=== PATIENT | male | born 1965 | race Caucasian/White ===

== ENCOUNTER 2021-02-01 16:20 | Inpatient (IN) | payer OTHER ==
[2021-02-01] MEDS ORDERED: ACETAMINOPHEN 1000 MG/100 ML VIAL (NON FORMULARY) IVPB ONE (17:18)
[2021-02-01 17:50] LABS: BASO % 0.9 % (0-2.0); EOS % 0.8 % (0-4.5); HEMATOCRIT 35.5 % (35.4-49); HEMOGLOBIN 12.2 GM/dL (11.7-16.9); LYMPH % 3.7 % (8-40); MCH 34.5 pg (25.7-33.7); MCHC 34.2 g/dl (32.0-35.9); MEAN CELL VOLUME 100.6 fl (80-96); MEAN PLT VOLUME 9.2 fl (7.5-11.1); MONO % 7.1 % (3.8-10.2); NEUT % 87.5 % (42.8-82.8); PLATELET COUNT 120 K/MM3 (134-434); RBC 3.53 M/mm3 (4.00-5.60); RDW 15.3 % (11.9-15.9); WHITE BLOOD COUNT 8.7 K/mm3 (4.0-10.0)
[2021-02-01] MEDS ORDERED: SODIUM CHLORIDE 0.9% 500 ML INFUS.BAG IV ONE ×2 (18:01→21:50)
[2021-02-01] MEDS ORDERED: THIAMINE HCL 100 MG TABLET (FP) PO ONE (18:02)
[2021-02-01] MEDS ORDERED: FOLIC ACID 1 MG TABLET (FP) PO ONE (18:02)
[2021-02-01 18:11] LABS: CALCIUM 9.3 mg/dL (8.5-10.1)
[2021-02-01 18:12] LABS: BLOOD UREA NITROGEN 13.8 mg/dL (7-18)
[2021-02-01 18:17] LABS: BILIRUBIN,TOTAL 1.7 mg/dL (0.2-1)
[2021-02-01] MEDS ORDERED: ACETAMINOPHEN INJECTION 100 ML IVPB ONE (18:27)
[2021-02-01] MEDS ORDERED: THIAMINE HCL 100 MG TABLET (FP) ONE (18:27)
[2021-02-01] MEDS ORDERED: FOLIC ACID 1 MG TABLET (FP) ONE (18:27)
[2021-02-01 18:39] LABS: EPI CELLS 17 /uL (0-25.1); HYALINE CASTS 32 /uL (0-3.1); URINE APPEARANCE CLOUDY; URINE BILIRUBIN 2+ (NEGATIVE); URINE COLOR ORANGE; URINE GLUCOSE (UA) NEGATIVE (NEGATIVE); URINE KETONE TRACE (NEGATIVE); URINE LEUK ESTERASE TRACE (NEGATIVE); URINE NITRITE POSITIVE (NEGATIVE); URINE PROTEIN 2+ (NEGATIVE); URINE RBC 10 /uL (0-23.9); URINE WBC 16 /uL (0-25.8)
[2021-02-01 19:30] LABS: URINE BACTERIA 6.6 /uL (0-1359)
[2021-02-01] MEDS ORDERED: LORazepam 2 MG/ML SDV VIAL IVPUSH ONE (19:57)
[2021-02-01] MEDS ORDERED: LORazepam 2 MG/ML SDV VIAL ONE (20:03)
[2021-02-01 20:31] LABS: LACTIC ACID 2.1 mmol/L (0.4-2.0)
[2021-02-01] MEDS ORDERED: CEFTRIAXONE 1 GM in DEXTROSE 5%-WATER - 100 ML IVPB ONE (20:38)
[2021-02-01] MEDS ORDERED: CEFTRIAXONE 1 GM/50 ML BAG ONE (20:47)
[2021-02-02] MEDS ORDERED: SODIUM CHLORIDE 1,000 ML IV SCH (01:30)
[2021-02-02 05:59] LABS: HEMATOCRIT 33.5 % (35.4-49); HEMOGLOBIN 11.6 GM/dL (11.7-16.9); MCH 34.8 pg (25.7-33.7); MCHC 34.5 g/dl (32.0-35.9); MEAN CELL VOLUME 100.8 fl (80-96); MEAN PLT VOLUME 8.7 fl (7.5-11.1); PLATELET COUNT 92 K/MM3 (134-434); RBC 3.33 M/mm3 (4.00-5.60); RDW 15.1 % (11.9-15.9); WHITE BLOOD COUNT 5.6 K/mm3 (4.0-10.0)
[2021-02-02 06:16] LABS: ALBUMIN 3.5 g/dl (3.4-5.0); CALCIUM 8.8 mg/dL (8.5-10.1)
[2021-02-02 06:17] LABS: BLOOD UREA NITROGEN 11.2 mg/dL (7-18)
[2021-02-02 06:19] LABS: MAGNESIUM 1.9 mg/dL (1.8-2.4)
[2021-02-02 06:20] LABS: CREATININE 0.6 mg/dL (0.55-1.3); PHOSPHOROUS 2.8 mg/dL (2.5-4.9)
[2021-02-02 06:21] LABS: BILIRUBIN,TOTAL 1.9 mg/dL (0.2-1); TOT PROT 7.9 g/dl (6.4-8.2)
[2021-02-02] MEDS ORDERED: FOLIC ACID 1 MG TABLET (FP) PO SCH (10:00)
[2021-02-02] MEDS ORDERED: CEFTRIAXONE 1 GM in DEXTROSE 5%-WATER - 50 ML IVPB SCH (10:00)
[2021-02-02] MEDS ORDERED: THIAMINE HCL 100 MG TABLET (FP) PO SCH (10:00)
[2021-02-02] MEDS ORDERED: MULTIVITAMINS (DAILY MVI) TABLET (FP) PO SCH (10:00)
[2021-02-02] MEDS ORDERED: ENOXAPARIN NA (PORCINE) 40 MG/0.4 ML DISP.SYRIN SQ SCH (10:00)
[2021-02-02] MEDS ORDERED: THIAMINE HCL 100 MG TABLET (FP) ONE (10:19)
[2021-02-02] MEDS ORDERED: MULTIVITAMINS (DAILY MVI) TABLET (FP) ONE (10:19)
[2021-02-02] MEDS ORDERED: FOLIC ACID 1 MG TABLET (FP) ONE (10:20)
[2021-02-02] MEDS ORDERED: CEFTRIAXONE 1 GM/50 ML BAG ONE (10:20)
[2021-02-02] MEDS ORDERED: ENOXAPARIN NA (PORCINE) 40 MG/0.4 ML DISP.SYRIN SQ ONE (10:20)
[2021-02-02] MEDS ORDERED: LORazepam 1 MG TABLET ONE (10:31)
[2021-02-02] MEDS: LORazepam 1 MG TABLET PO PRN ×2 (10:36→21:05)
[2021-02-02 13:08] VITALS: BMI 29.5
[2021-02-02] MEDS ORDERED: LORazepam 1 MG TABLET PO PRN (22:51)
[2021-02-03 07:41] LABS: BASO % 1.1 % (0-2.0); EOS % 6.9 % (0-4.5); HEMATOCRIT 33.9 % (35.4-49); HEMOGLOBIN 11.7 GM/dL (11.7-16.9); MCH 35.1 pg (25.7-33.7); MCHC 34.5 g/dl (32.0-35.9); MEAN CELL VOLUME 101.6 fl (80-96); MEAN PLT VOLUME 9.7 fl (7.5-11.1); PLATELET COUNT 91 K/MM3 (134-434); RBC 3.34 M/mm3 (4.00-5.60); RDW 14.6 % (11.9-15.9); WHITE BLOOD COUNT 6.1 K/mm3 (4.0-10.0)
[2021-02-03 08:18] LABS: CALCIUM 8.8 mg/dL (8.5-10.1)
[2021-02-03 08:19] LABS: ALBUMIN 3.5 g/dl (3.4-5.0); BLOOD UREA NITROGEN 10.8 mg/dL (7-18); MAGNESIUM 1.8 mg/dL (1.8-2.4)
[2021-02-03 08:22] LABS: CREATININE 0.6 mg/dL (0.55-1.3)
[2021-02-03 08:25] LABS: BILIRUBIN,TOTAL 2.2 mg/dL (0.2-1)
[2021-02-03] MEDS ORDERED: DEXTROSE 5%-WATER - 50 ML IVPB ONE (08:56)
[2021-02-03] MEDS ORDERED: cefTRIAXone SODIUM 1 GM VIAL ONE (08:56)
[2021-02-03] MEDS: THIAMINE HCL 100 MG TABLET (FP) PO SCH (09:08)
[2021-02-03] MEDS: CEFTRIAXONE 1 GM in DEXTROSE 5%-WATER - 50 ML IVPB SCH (09:08)
[2021-02-03] MEDS: FOLIC ACID 1 MG TABLET (FP) PO SCH (09:08)
[2021-02-03] MEDS: ENOXAPARIN NA (PORCINE) 40 MG/0.4 ML DISP.SYRIN SQ SCH (09:09)
[2021-02-03] MEDS: MULTIVITAMINS (DAILY MVI) TABLET (FP) PO SCH (09:09)
[2021-02-03] MEDS ORDERED: LORazepam 1 MG TABLET PO PRN (10:21)
[2021-02-03] MEDS: LORazepam 1 MG TABLET PO SCH ×3 (11:03→22:01)
[2021-02-04] MEDS ORDERED: LORazepam 0.5 MG TABLET PO PRN ×2
[2021-02-04] MEDS: LORazepam 1 MG TABLET PO SCH ×4 (05:46→22:23)
[2021-02-04 07:34] LABS: EOS % 6.5 % (0-4.5); HEMATOCRIT 34.2 % (35.4-49); MCH 35.3 pg (25.7-33.7); MEAN CELL VOLUME 100.8 fl (80-96); MEAN PLT VOLUME 9.8 fl (7.5-11.1); MONO % 9.2 % (3.8-10.2); NEUT % 73.3 % (42.8-82.8); PLATELET COUNT 99 K/MM3 (134-434); RBC 3.39 M/mm3 (4.00-5.60); RDW 14.7 % (11.9-15.9)
[2021-02-04 07:39] LABS: INR 1.18 (0.83-1.09); PROTHROMBIN TIME (PATIENT) 14.4 SEC (9.7-13.0)
[2021-02-04 07:42] LABS: ACTIVATED PTT 31.9 SECONDS (25.2-36.5)
[2021-02-04 08:12] LABS: CALCIUM 8.9 mg/dL (8.5-10.1)
[2021-02-04 08:13] LABS: MAGNESIUM 1.8 mg/dL (1.8-2.4)
[2021-02-04 08:14] LABS: CREATININE 0.5 mg/dL (0.55-1.3)
[2021-02-04 08:15] LABS: ALBUMIN 3.4 g/dl (3.4-5.0); TOT PROT 7.9 g/dl (6.4-8.2)
[2021-02-04 08:19] LABS: BILIRUBIN,TOTAL 1.6 mg/dL (0.2-1)
[2021-02-04] MEDS ORDERED: cefTRIAXone SODIUM 1 GM VIAL ONE (08:40)
[2021-02-04] MEDS ORDERED: DEXTROSE 5%-WATER - 50 ML IVPB ONE (08:40)
[2021-02-04] MEDS: THIAMINE HCL 100 MG TABLET (FP) PO SCH (09:04)
[2021-02-04] MEDS: MULTIVITAMINS (DAILY MVI) TABLET (FP) PO SCH (09:04)
[2021-02-04] MEDS: FOLIC ACID 1 MG TABLET (FP) PO SCH (09:07)
[2021-02-04] MEDS: ENOXAPARIN NA (PORCINE) 40 MG/0.4 ML DISP.SYRIN SQ SCH (09:07)
[2021-02-04] MEDS: CEFTRIAXONE 1 GM in DEXTROSE 5%-WATER - 50 ML IVPB SCH (09:07)
[2021-02-05] MEDS ORDERED: LORazepam 1 MG TABLET PO SCH (05:00)
[2021-02-05] MEDS: LORazepam 1 MG TABLET PO SCH ×4 (05:03→22:01)
[2021-02-05 07:27] LABS: BASO % 1.2 % (0-2.0); EOS % 7.2 % (0-4.5); HEMATOCRIT 33.8 % (35.4-49); HEMOGLOBIN 11.8 GM/dL (11.7-16.9); LYMPH % 10.3 % (8-40); MCH 35.3 pg (25.7-33.7); MEAN CELL VOLUME 100.8 fl (80-96); MEAN PLT VOLUME 9.5 fl (7.5-11.1); MONO % 12.1 % (3.8-10.2); NEUT % 69.2 % (42.8-82.8); PLATELET COUNT 102 K/MM3 (134-434); RBC 3.35 M/mm3 (4.00-5.60); RDW 14.7 % (11.9-15.9); WHITE BLOOD COUNT 5.8 K/mm3 (4.0-10.0)
[2021-02-05 07:43] LABS: BLOOD UREA NITROGEN 11.3 mg/dL (7-18); CALCIUM 8.7 mg/dL (8.5-10.1); MAGNESIUM 1.8 mg/dL (1.8-2.4)
[2021-02-05 07:44] LABS: ALBUMIN 3.4 g/dl (3.4-5.0)
[2021-02-05 07:46] LABS: CREATININE 0.7 mg/dL (0.55-1.3)
[2021-02-05 07:48] LABS: BILIRUBIN,TOTAL 1.4 mg/dL (0.2-1)
[2021-02-05] MEDS: MULTIVITAMINS (DAILY MVI) TABLET (FP) PO SCH (10:47)
[2021-02-05] MEDS: THIAMINE HCL 100 MG TABLET (FP) PO SCH (10:47)
[2021-02-05] MEDS: FOLIC ACID 1 MG TABLET (FP) PO SCH (10:48)
[2021-02-05] MEDS: ENOXAPARIN NA (PORCINE) 40 MG/0.4 ML DISP.SYRIN SQ SCH (10:48)
[2021-02-05 13:11] LABS: HEP B CORE AB, TOT Negative (Negative)
[2021-02-06] MEDS ORDERED: LORazepam 0.5 MG TABLET PO PRN ×2
[2021-02-06] MEDS ORDERED: LORazepam 0.5 MG TABLET PO SCH (05:00)
[2021-02-06] MEDS: LORazepam 0.5 MG TABLET PO SCH ×4 (05:04→22:49)
[2021-02-06 08:19] LABS: BASO % 1.3 % (0-2.0); EOS % 8.2 % (0-4.5); HEMOGLOBIN 11.7 GM/dL (11.7-16.9); MCH 34.7 pg (25.7-33.7); MCHC 34.5 g/dl (32.0-35.9); MEAN CELL VOLUME 100.5 fl (80-96); MEAN PLT VOLUME 9.4 fl (7.5-11.1); MONO % 15.6 % (3.8-10.2); NEUT % 62.9 % (42.8-82.8); PLATELET COUNT 120 K/MM3 (134-434); RBC 3.38 M/mm3 (4.00-5.60); RDW 14.9 % (11.9-15.9); WHITE BLOOD COUNT 5.7 K/mm3 (4.0-10.0)
[2021-02-06 08:37] LABS: CALCIUM 9.1 mg/dL (8.5-10.1)
[2021-02-06 08:38] LABS: ALBUMIN 3.4 g/dl (3.4-5.0); BLOOD UREA NITROGEN 10.8 mg/dL (7-18); MAGNESIUM 2.1 mg/dL (1.8-2.4)
[2021-02-06 08:41] LABS: CREATININE 0.5 mg/dL (0.55-1.3)
[2021-02-06 08:42] LABS: BILIRUBIN,TOTAL 1.2 mg/dL (0.2-1); TOT PROT 7.9 g/dl (6.4-8.2)
[2021-02-06] MEDS: THIAMINE HCL 100 MG TABLET (FP) PO SCH (10:16)
[2021-02-06] MEDS: ENOXAPARIN NA (PORCINE) 40 MG/0.4 ML DISP.SYRIN SQ SCH (10:17)
[2021-02-06] MEDS: FOLIC ACID 1 MG TABLET (FP) PO SCH (10:17)
[2021-02-06] MEDS: MULTIVITAMINS (DAILY MVI) TABLET (FP) PO SCH (10:17)
[2021-02-07] MEDS ORDERED: LORazepam 0.5 MG TABLET PO ONE ×2 (05:00)
[2021-02-07 10:17] LABS: BASO % 0.9 % (0-2.0); EOS % 7.6 % (0-4.5); HEMATOCRIT 39.1 % (35.4-49); LYMPH % 13.7 % (8-40); MCHC 33.2 g/dl (32.0-35.9); MEAN CELL VOLUME 102.5 fl (80-96); MEAN PLT VOLUME 9.6 fl (7.5-11.1); MONO % 18.8 % (3.8-10.2); PLATELET COUNT 175 K/MM3 (134-434); RBC 3.82 M/mm3 (4.00-5.60); RDW 14.7 % (11.9-15.9); WHITE BLOOD COUNT 7.3 K/mm3 (4.0-10.0)
[2021-02-07] MEDS: THIAMINE HCL 100 MG TABLET (FP) PO SCH (10:25)
[2021-02-07] MEDS: FOLIC ACID 1 MG TABLET (FP) PO SCH (10:25)
[2021-02-07] MEDS: MULTIVITAMINS (DAILY MVI) TABLET (FP) PO SCH (10:25)
[2021-02-07] MEDS: ENOXAPARIN NA (PORCINE) 40 MG/0.4 ML DISP.SYRIN SQ SCH (10:25)
[2021-02-07 10:38] LABS: ALBUMIN 3.8 g/dl (3.4-5.0); BLOOD UREA NITROGEN 13.2 mg/dL (7-18); CALCIUM 9.4 mg/dL (8.5-10.1); MAGNESIUM 2.2 mg/dL (1.8-2.4)
[2021-02-07 10:41] LABS: CREATININE 0.8 mg/dL (0.55-1.3)
[2021-02-07 10:43] LABS: BILIRUBIN,TOTAL 1.2 mg/dL (0.2-1); TOT PROT 8.7 g/dl (6.4-8.2)
[2021-02-07 16:15] VITALS: BP 104/65; PULSE 83; TEMP 98.3
== END 2021-02-07 12:33 | disposition home or self-care (01) | DRG 254 ==
LOC: JER 16:20 → JERBED 20:39 → J7W 02-02 12:41
PROVIDERS: ADMIT Internal Medicine; ATTEND Nurse Practitioner Family
DX: K40.90 Unilateral inguinal hernia, without obstruction or gangrene, not specified as recurrent (principal); R10.32 Left lower quadrant pain; K74.60 Unspecified cirrhosis of liver; D69.6 Thrombocytopenia, unspecified; R74.01 Elevation of levels of liver transaminase levels; N39.0 Urinary tract infection, site not specified; F10.239 Alcohol dependence with withdrawal, unspecified; Z59.0 Homelessness
CPT/HCPCS: 36415; 71045-TC-FY; 74177-TC; 76700-TC; 80053; 80061; 80307; 81003; 83036; 83516; 83605; 83690; 83721; 83735; 84100; 85025; 85027; 85610; 85730; 86038; 86704; 86705; 86706; 86707; 86708; 87086; 87522; 93005; 93010; 99285-25; C9803; J0131; Q9967; U0003; U0005